=== PATIENT | female | born 1980 | race Two or more races ===

== ENCOUNTER 2018-04-28 03:45 | Inpatient (IN) ==
[2018-04-28] MEDS ORDERED: ceFAZolin 2 GM Premix Inj 2 GM/50 ML PIGGYBACK IV.SIG PRN (04:43)
[2018-04-28] MEDS ORDERED: Citric Acid/Sodium Citrate Liq 30 ML UDC PO SCH (04:45)
[2018-04-28] MEDS ORDERED: Zolpidem Tartrate 5 MG Tablet PO PRN (04:48)
[2018-04-28] MEDS ORDERED: Simethicone 80 MG Chew Tablet PO PRN (04:48)
[2018-04-28] MEDS ORDERED: Acetaminophen 325 MG Tablet PO PRN (04:48)
[2018-04-28] MEDS ORDERED: Oxytocin 30 Units/500ml Premix 30 UNITS/500 ML BAG IV.SIG ONE (04:48)
--- NOTE | 2018-04-28 04:54 | P.HPOB ---
History of Present Illness Primary Care Physician: NOT REQUIRED [facility] at [facility] Chief Complaint: Contractions since 1 AM and possible leaking of fluid History of Present Illness: 38-year-old 011 at 39 weeks with a final EDC of 04/30/2018 presents complaining of contractions since 1 AM and possible leakage of fluid. care complicated by controlled gestational diabetes, late entry to , GBS positive, and advanced maternal age. she has a history of a previous desires repeat with bilateral tubal ligation. Past OB history secondary to failure to progress Past [employer] history denies STDs Past medical history mild stroke Past surgical history Allergies aspirin but she is able to tolerate ibuprofen and Toradol Social history denies x3 previous smoker Weeks Gestation:: 39 Para: 1 : 3 - Inpatient Certification I certify that the inpatient services were ordered in accordance with Medicare regulations governing the order. This includes certification that hospital inpatient services are reasonable and necessary and in the case of services not specified as inpatient-only under 42 CFR 419.22(n), that they are appropriately provided as inpatient services in accordance to with the 2-midnight benchmark under 43 CFR 412.3(e) Estimated Total Length of Stay (Days): 3 Plans for Post Hospital Care: Home Review of Systems All other systems reviewed negative except as stated in HPI [facility] - Surgical History Surgical History: Surgical History (Last Updated 04/26/18 @ 04:53 by Fer Guo MD) Previous section - Tobacco History Smoking Status: Never smoker - Alcohol History How Often Do You Have a Drink Containing Alcohol: Never - Substance Use History Substance History: No History of Abuse - Travel History History of Recent Travel: No Medications and Allergies Active Medications: Active Medications Acetaminophen (Tylenol) 650 mg PO Q6H PRN PRN Reason: PAIN SCALE 1 TO 2 Citric Acid/Sodium Citrate (Sodium Citrate/Citric Acid Liq) 30 ml PO FREIGHT INSPECTOR LINDA Stop: 05/02/18 04:44 Diphtheria/Pertussis/Tetanus Vacc (Boostrix Vaccine Inj) 0.5 ml IM .ONCE ONE Stop: 04/29/18 16:01 Cefazolin Sodium/Dextrose (Ancef 2 Gm Premix Inj) 2 gm in 50 mls @ 100 mls/hr IV.SIG FREIGHT INSPECTOR PRN PRN Reason: ON-CALL Stop: 05/02/18 04:42 Lactated Ringer's (Lr 1000 Ml Inj) 1,000 mls @ 2,000 mls/hr IV.SIG .Q30M ONE Stop: 04/28/18 05:12 Lactated Ringer's (Lr 1000 Ml Inj) 1,000 mls @ 150 mls/hr IV.CONT .Q6H40M LINDA Acetaminophen (Ofirmev Inj) 1,000 mg in 100 mls @ 400 mls/hr IV.SIG ONCE ONE Stop: 04/28/18 05:02 Lactated Ringer's (Lr 1000 Ml Inj) 1,000 mls @ 100 mls/hr IV.CONT .Q10H LINDA Stop: 04/29/18 05:47 Oxytocin (Pitocin 30 Units/Ns 500 Ml Premix) 30 units in 500 mls @ 100 mls/hr IV.SIG ONCE ONE Stop: 04/28/18 09:47 Oxytocin (Pitocin 30 Units/Ns 500 Ml Premix) 30 units in 500 mls @ 100 mls/hr IV.SIG UNSCH PRN PRN Reason: Heavy bleeding Ibuprofen (Motrin) 800 mg PO Q8H PRN PRN Reason: cramping Ketorolac Tromethamine (Toradol Inj) 60 mg IM ONCE PRN PRN Reason: SEE LABEL COMMENTS Stop: 04/29/18 04:47 Measles/Mumps/Rubella Vaccine Live (M-M-R Ii Vaccine Inj) 0.5 ml SQ .ONCE ONE Stop: 04/29/18 16:01 Ondansetron HCl (Zofran Inj) 4 mg IV.PUSH Q6H PRN PRN Reason: NAUSEA OR VOMITING Oxycodone/Acetaminophen (Percocet 5/325 Mg) 1 tab PO Q4H PRN PRN Reason: PAIN SCALE 3 TO 5 Oxycodone/Acetaminophen (Percocet 5/325 Mg) 2 tab PO Q4H PRN PRN Reason: PAIN SCALE 6 TO 10 Senna/Docusate Sodium (Cara-Colace) 2 tab PO Q12H PRN PRN Reason: CONSTIPATION Simethicone (Mylicon Chew) 80 mg PO QID PRN PRN Reason: FLATULENCE Sodium Chloride (Ns Flush) 2 ml IV.FLUSH BID LINDA Sodium Chloride (Ns Flush) 2 ml IV.FLUSH PRN PRN PRN Reason: FLUSH AFTER USING IV ACCESS Zolpidem Tartrate (Ambien) 5 mg PO HS PRN PRN Reason: INSOMNIA Allergies Allergy/AdvReac Type Severity Reaction Status Date / Time aspirin Allergy BLOOD Verified 04/28/18 04:21 THICKENS Home Medications Medication Instructions Recorded Confirmed Type Vitamin 1 tab PO DAILY 04/28/18 04/28/18 History Exam Vital signs: Vital Signs 04/28/18 04:10 04/28/18 04:11 Temperature 98.0 F Pulse Rate 86 Respiratory Rate 18 Blood Pressure 130/85 Intake & Output 04/27/18 04/27/18 04/28/18 06:59 18:59 06:59 Weight 89.358 kg Narrative: GENERAL: Well-nourished, well-developed patient. SKIN: Warm and dry. HEAD: Normocephalic and atraumatic. EYES: No scleral icterus. No injection or drainage. ENT: No nasal drainage noted. Mucous membranes pink. Airway patent. NECK: Supple, trachea midline. No JVD. CARDIOVASCULAR: Regular rate and rhythm without murmurs, gallops, or rubs. RESPIRATORY: Breath sounds equal bilaterally. No accessory muscle use. BREASTS: Bilateral exam showed no masses , no retractions, no nipple discharge. ABDOMEN/GI: Abdomen soft, non-tender, bowel sounds present, no rebound, no guarding Gravid to 39 weeks size Fundal Height: 39 GENITOURINARY: External Genitalia: intact and normal in appearance BUS glands: Unremarkable Cervix: Soft Dilatation: 2-3 Effacement: 80% Station: -3 -2 Presentation: Vertex Membranes: Intact confirmed by PAMG Uterine Contractions: Regular every 1-3 minutes FHT's: Category: 1 Variability: Moderate EXTREMITIES: No cyanosis or edema. BACK: Nontender without obvious deformity. No CVA tenderness. NEUROLOGICAL: Awake and alert. Motor and sensory grossly within normal limits. Five out of 5 muscle strength in all muscle groups. Normal speech. Caprini VTE Risk Assessment Caprini VTE Risk Assessment: No/Low Risk (score <= 1) Caprini Risk Assessment Model: Point Value = 1 Point Value = 2 Point Value = 3 Point Value = 5 Age 41-60 Minor surgery BMI > 25 kg/m2 Swollen legs Varicose veins or History of unexplained or recurrent spontaneous Oral contraceptives or hormone replacement Sepsis (< 1 month) Serious lung disease, including pneumonia (< 1 month) Abnormal pulmonary function Acute myocardial infarction Congestive heart failure (< 1 month) History of inflammatory bowel disease Medical patient at bed rest Age 61-74 Arthroscopic surgery Major open surgery (> 45 min) Laparoscopic surgery (> 45 min) Malignancy Confined to bed (> 72 hours) Immobilizing plaster cast Central venous access Age >= 75 History of VTE Family history of VTE Factor V Leiden Prothrombin [id number] Lupus anticoagulant Anticardiolipin antibodies Elevated serum homocysteine Heparin-induced thrombocytopenia Other congenital or acquired thrombophilia Stroke (< 1 month) Elective arthroplasty Hip, pelvis, or leg fracture Acute spinal cord injury (< 1 month) Prophylaxis Regimen: Total Risk Factor Score Risk Level Prophylaxis Regimen 0-1 Low Early ambulation 2 Moderate Order ONE of the following: *Sequential Compression Device (SCD) *Heparin 5000 units SQ BID 3-4 Higher Order ONE of the following medications: *Heparin 5000 units SQ TID *Enoxaparin/Lovenox 40 mg SQ daily (WT < 150 kg, CrCl > 30 mL/min) *Enoxaparin/Lovenox 30 mg SQ daily (WT < 150 kg, CrCl > 10-29 mL/min) *Enoxaparin/Lovenox 30 mg SQ BID (WT < 150 kg, CrCl > 30 mL/min) AND/OR *Sequential Compression Device (SCD) 5 or more Highest Order ONE of the following medications: *Heparin 5000 units SQ TID (Preferred with Epidurals) *Enoxaparin/Lovenox 40 mg SQ daily (WT < 150 kg, CrCl > 30 mL/min) *Enoxaparin/Lovenox 30 mg SQ daily (WT < 150 kg, CrCl > 10-29 mL/min) *Enoxaparin/Lovenox 30 mg SQ BID (WT < 150 kg, CrCl > 30 mL/min) AND *Sequential Compression Device (SCD) Assessment and Plan - Diagnosis (1) Previous section complicating Code(s): O34.219 - Maternal care for unspecified type scar from previous delivery Status: Acute (2) Uterine contractions during Code(s): O62.2 - Other uterine inertia Status: Acute (3) Encounter for tubal ligation Code(s): Z30.2 - Encounter for sterilization Status: Acute (4) 39 weeks gestation of Code(s): Z3A.39 - 39 weeks gestation of Status: Acute - Plan At this point patient is commencing active labor with a history of previous C- section does not desire [id number] to the OR Alternatives benefits complications including but not limited to injury to the bowel bladder nerves blood vessels ureters any structures in the abdomen or pelvis infection hemorrhage morbidity mortality related surgery under anesthesia related procedures risk of injury. With tubal sterilization 1- 2 per thousand regards of method used to risk of ectopic permanency of the procedure. Risk of infection hemorrhage reoperation risk anesthesia related risk patient expressed verbal understanding.
[2018-04-28 05:01] LABS: Baso % (Auto) 0.4 % (0.0-2.0); Eos # (Auto) 0.1 th/mm3 (0.0-0.4); Hematocrit 35.4 % (35.0-46.0); Hemoglobin 11.8 gm/dL (11.6-15.3); Lymph # (Auto) 1.9 th/mm3 (1.0-4.8); Lymph % (Auto) 19.2 % (9.0-44.0); Mean Corpuscular HGB Conc 33.4 % (32.0-36.0); Mean Platelet Volume 8.4 fL (7.0-11.0); Mono # (Auto) 0.8 th/mm3 (0.0-0.9); Mono % (Auto) 7.9 % (0.0-8.0); Neut # (Auto) 7.1 th/mm3 (1.8-7.7); Neut % (Auto) 71.5 % (16.0-70.0); Platelet Count 190 th/mm3 (150-450); Red Blood Count 4.54 mil/mm3 (4.00-5.30); Red Cell Distribution Width 15.3 % (11.6-17.2)
[2018-04-28 05:20] LABS: Alanine Aminotransferase 13 U/L (10-53); Albumin 2.3 g/dL (3.4-5.0); Anion Gap 7 meq/L (5-15); Aspartate Aminotransferase 13 U/L (15-37); Blood Urea Nitrogen 14 mg/dL (7-18); Calcium 8.3 mg/dL (8.5-10.1); Carbon Dioxide 23.3 meq/L (21.0-32.0); Chloride 110 meq/L (98-107); Glomerular Filtration Rate 79 mL/min (>89); Glucose,Random 82 mg/dL (74-106); Potassium 4.1 meq/L (3.5-5.1); Sodium 140 meq/L (136-145)
[2018-04-28 05:22] LABS: Alkaline Phosphatase 163 U/L (45-117); Total Protein 6.8 g/dL (6.4-8.2)
--- NOTE | 2018-04-28 06:55 | P.OP ---
- Preoperative Diagnosis (1) Previous section complicating (2) Uterine contractions during (3) 39 weeks gestation of (4) Encounter for tubal ligation - Postoperative Diagnosis (1) Previous section complicating (2) Uterine contractions during (3) 39 weeks gestation of (4) Encounter for tubal ligation (5) Theca-lutein cyst of ovary (6) Thick meconium stained amniotic fluid Date of procedure: 04/28/18 Procedure: Repeat low uterine transverse section and bilateral tubal ligation Anesthesia: spinal Surgeon: Maryann Gamble MD Estimated blood loss (mL): 700 Pathology: other (Bilateral theca lutein cysts) Operation and Findings: Patient presents to labor and delivery in labor scheduled for a delivery and tubal sterilization at 1030 we will proceed now. Complications of injury to the bowel bladder nerves blood vessels ureters fetus in any structures in the abdomen or pelvis. Reoperation risk. Risk of ectopic and permanency of the procedure with tubal sterilization. Unforeseen injury. Anesthesia related risks. Hemorrhage infection. Patient expressed verbal understanding. Subsequently she was taken to the OR where she was placed under spinal analgesia prepped and draped in normal sterile fashion. Timeout was performed and received preop antibiotics. A Pfannenstiel skin incision was made through a different incision approximately 1 cm above her previous incision fascia incised in the midline dissected laterally digitally. The superior aspect the fascia was grasped with Freedom clamps x2 dissected off from the underlying rectus muscle. Inferior aspect of the fascia was grasped with Oksana clamps x2 dissected off from the underlying rectus muscle.. Rectus muscle was blunt entrance into the peritoneum with care to avoid the bladder bladder blade was placed. Vesicouterine peritoneum was identified created in a transverse fashion. Once the bladder flap was created the [place] was repositioned. The lower uterine segment was extremely thin. Consistent with a labored lower uterine segment. A single stab incision with opening of the lower uterine segment which was dissected laterally digitally . Amniotomy copious meconium noted. The vertex was delivered the nares and mouth were bulb suctioned followed by delivery of the remainder of the body. Delayed cord clamping. Viable female Apgars 7 8 weight 8 pounds 13 ounces. Of note baby was taken to the NICU for further observation. Cord blood was collected. Placenta was manually removed noted to be markedly meconium stained note thick particulate matter present. Uterus was externalized cleared of all clot and debris. Uterine incision was reapproximated with 1-0 chromic then subsequently 1-0 Vicryl. The lower uterine segment was quite thin had to rebuild the lower uterine segment using interrupted sutures as well as running sutures. Once subsequently closed and adequate hemostasis present proceeded to ligate patient's tubes. The left tube was subsequently followed out to the fimbriated end grasped approximately 2 cm from the corneal region and then subsequently ligated x2 with plain gut the knuckle of tube was excised however the integrity was felt to be suboptimal at this time proceeded to utilize the peritoneum buried the stump of the ostia and then subsequently closed in a running fashion locked with an SH needle 3 oh. Good hemostasis noted. The contralateral tube or right tube able to successfully grasped with a [place] clamp good knuckling good blanching of tube noted after application of plain gut x2 and the tube was subsequently excised and handed off to pathology. The paracolic gutters were cleared of all clot and debris. Bilateral theca lutein cyst noted patient made aware. Uterus was repositioned into the pelvic abdominal cavity. To ensure hemostasis the uterine incision was evaluated hemostasis was noted to be adequate however placed Interceed along the uterine incision to the patient's right. Observe times several more minutes no further oozing or bleeding noted.. Patient's rectus muscle on the left hand side was noted to be sheared and oozing subsequently Bovie pencil applied with figure of 8 suture x3 with good hemostasis noted the same identical process was noted on the contralateral side and controlled with [id number] suture x2.. Observe times several more minutes no further bleeding or oozing noted.. Once again reevaluated all the incisions and areas which were ligated good hemostasis note noted at all sites. Proceeded to identify the fascia which was closed with 1 PDS in a running fashion.. The subcutaneous fat was reapproximated with 1 chromic in an interrupted fashion. The skin was closed with insert on a Luis needle. Mother stable
[2018-04-28 09:18] LABS: Bacteria,Urine Rare /hpf; Bilirubin,Urine Negative (Negative); Clarity,Urine Hazy (Clear); Color,Urine Yellow (Yellw/Straw); Glucose,Urine (UA) Negative (Negative); Leukocyte Esterase,Urine Trace (Negative); Mucus,Urine Few /lpf (Occasional); Nitrite,Urine Negative (Negative); Specific Gravity,Urine 1.018 (1.002-1.035); Squamous Epithelial Cell,Urine 3 /hpf (0-5)
[2018-04-28] MEDS ORDERED: Oxytocin 30 Units/500ml Premix 30 UNITS/500 ML BAG IV.SIG PRN (09:48)
[2018-04-28] MEDS ORDERED: Naloxone Inj 0.4 MG/ML Vial IV.PUSH PRN (09:50)
[2018-04-28] MEDS: Senna/Docusate Sodium 8.6/50 MG Tablet PO PRN (21:59)
--- NOTE | 2018-04-29 09:00 | P.PNOB ---
Subjective Post op day: 1 Interval history: Patient is a 38-year-old G 3 P 2 delivered at 39 weeks. Patient is postop day 1 after repeat . Patient's pain is well-controlled. Patient reports eating and drinking without any nausea or vomiting. Patient reports minimal bleeding. Patient has passed gas but no bowel movements. Patient is walking without lower extremity pain or shortness of breath. She does report lower extremity edema but it is improved since delivery. Objective Vital Signs/I&O: Vital Signs 04/28/18 12:00 04/28/18 16:00 04/28/18 20:00 Temperature 97.7 F 98.9 F 97.8 F Pulse Rate 59 L 74 86 Respiratory Rate 18 18 18 Blood Pressure 123/89 116/75 128/87 04/29/18 00:00 04/29/18 04:00 Temperature 98.2 F 98.1 F Pulse Rate 85 86 Respiratory Rate 18 18 Blood Pressure 114/66 116/70 Result Diagrams: 04/28/18 04:49 04/28/18 04:49 Objective Remarks: GENERAL: Well-nourished, well-developed patient. CARDIOVASCULAR: Regular rate and rhythm without murmurs, gallops, or rubs. RESPIRATORY: Breath sounds equal bilaterally. No accessory muscle use. ABDOMEN/GI: Abdomen soft, non-tender, bowel sounds present. Incision: Bandage is clean, dry and intact. Fundus: Firm, non-tender at umbilicus. GENITOURINARY: Light to moderate bleeding. EXTREMITIES: Bilateral 1+ pitting edema to mid calf, non-tender, without signs of DVT. Medications and IVs: Active Medications Acetaminophen (Tylenol) 650 mg PO Q6H PRN PRN Reason: PAIN SCALE 1 TO 2 Citric Acid/Sodium Citrate (Sodium Citrate/Citric Acid Liq) 30 ml PO SPECIAL MAKEUP FX ARTIST INSTRUCTOR LINDA Stop: 05/02/18 04:44 Diphtheria/Pertussis/Tetanus Vacc (Boostrix Vaccine Inj) 0.5 ml IM .ONCE ONE Stop: 04/29/18 16:01 Cefazolin Sodium/Dextrose (Ancef 2 Gm Premix Inj) 2 gm in 50 mls @ 100 mls/hr IV.SIG SPECIAL MAKEUP FX ARTIST INSTRUCTOR PRN PRN Reason: ON-CALL Stop: 05/02/18 04:42 Lactated Ringer's (Lr 1000 Ml Inj) 1,000 mls @ 150 mls/hr IV.CONT .Q6H40M [facility] Last Admin: 04/29/18 04:09 Dose: Not Given Oxytocin (Pitocin 30 Units/Ns 500 Ml Premix) 30 units in 500 mls @ 100 mls/hr IV.SIG UNSCH PRN PRN Reason: Heavy bleeding Ibuprofen (Motrin) 800 mg PO Q8H PRN PRN Reason: cramping Last Admin: 04/28/18 22:00 Dose: 800 mg Measles/Mumps/Rubella Vaccine Live (M-M-R Ii Vaccine Inj) 0.5 ml SQ .ONCE ONE Stop: 04/29/18 16:01 Ondansetron HCl (Zofran Inj) 4 mg IV.PUSH Q6H PRN PRN Reason: NAUSEA OR VOMITING Oxycodone/Acetaminophen (Percocet 5/325 Mg) 1 tab PO Q4H PRN PRN Reason: PAIN SCALE 3 TO 5 Oxycodone/Acetaminophen (Percocet 5/325 Mg) 2 tab PO Q4H PRN PRN Reason: PAIN SCALE 6 TO 10 Last Admin: 04/29/18 04:06 Dose: 2 tab Senna/Docusate Sodium (Cara-Colace) 2 tab PO Q12H PRN PRN Reason: CONSTIPATION Last Admin: 04/28/18 21:59 Dose: 2 tab Simethicone (Mylicon Chew) 80 mg PO QID PRN PRN Reason: FLATULENCE Sodium Chloride (Ns Flush) 2 ml IV.FLUSH BID [facility] Last Admin: 04/28/18 22:01 Dose: Not Given Sodium Chloride (Ns Flush) 2 ml IV.FLUSH PRN PRN PRN Reason: FLUSH AFTER USING IV ACCESS Zolpidem Tartrate (Ambien) 5 mg PO HS PRN PRN Reason: INSOMNIA Assessment and Plan - Plan Patient is a 38-year-old G 3 P 2 delivered at 39 weeks. Patient is day 1 after repeat . Patient was counseled to do 6 weeks of pelvic rest. Patient was counseled to follow up in 6 weeks. --AF VSS --Continue routine care --Motrin and Percocet when necessary for pain --Encourage OOB --Pelvic rest for 6 weeks will need follow-up appointment at that time. --Contraception: Tubal ligation --Anticipate discharge tomorrow or Rajiv
[2018-04-29] MEDS ORDERED: Influenza (Quadrivalent) Vaccine 0.5 ML Syringe IM ONE (16:00)
[2018-04-29] MEDS ORDERED: Diphtheria/Tetanus/Pertussis Vaccine Inj 0.5 ML Syringe IM ONE (16:00)
[2018-04-29] MEDS ORDERED: Measles/Mumps/Rubella Vaccine Inj 0.5 ML Vial SQ ONE (16:00)
--- NOTE | 2018-04-30 08:43 | P.PNOB ---
Subjective Post op day: 2 Interval history: Patient is a 38-year-old G 3 P 2 delivered at 39 weeks. Patient is postop day 2 after repeat . Patient's pain is well-controlled. Patient reports eating and drinking without any nausea or vomiting. Patient reports minimal bleeding. Patient has passed gas but no bowel movements. Patient is walking without lower extremity pain or shortness of breath. She does report lower extremity edema. Objective Vital Signs/I&O: Vital Signs 04/29/18 09:30 04/29/18 20:00 Temperature 97.7 F 98.6 F Pulse Rate 88 108 H Respiratory Rate 20 20 Blood Pressure 121/75 148/84 H Result Diagrams: 04/28/18 04:49 04/28/18 04:49 Objective Remarks: GENERAL: Well-nourished, well-developed patient. CARDIOVASCULAR: Regular rate and rhythm without murmurs, gallops, or rubs. RESPIRATORY: Breath sounds equal bilaterally. No accessory muscle use. ABDOMEN/GI: Abdomen soft, non-tender, bowel sounds present. Incision: Clean, dry and intact. Fundus: Firm, non-tender at umbilicus. GENITOURINARY: Light to moderate bleeding. EXTREMITIES: +1 pitting edema to mid calf same as yesterday, non-tender, without signs of DVT. Medications and IVs: Active Medications Acetaminophen (Tylenol) 650 mg PO Q6H PRN PRN Reason: PAIN SCALE 1 TO 2 Citric Acid/Sodium Citrate (Sodium Citrate/Citric Acid Liq) 30 ml PO DIVING JUDGE [facility] Stop: 05/02/18 04:44 Cefazolin Sodium/Dextrose (Ancef 2 Gm Premix Inj) 2 gm in 50 mls @ 100 mls/hr IV.SIG DIVING JUDGE PRN PRN Reason: ON-CALL Stop: 05/02/18 04:42 Lactated Ringer's (Lr 1000 Ml Inj) 1,000 mls @ 150 mls/hr IV.CONT .Q6H40M [facility] Last Admin: 04/29/18 21:25 Dose: Not Given Oxytocin (Pitocin 30 Units/Ns 500 Ml Premix) 30 units in 500 mls @ 100 mls/hr IV.SIG UNSCH PRN PRN Reason: Heavy bleeding Ibuprofen (Motrin) 800 mg PO Q8H PRN PRN Reason: cramping Last Admin: 04/30/18 02:50 Dose: 800 mg Ondansetron HCl (Zofran Inj) 4 mg IV.PUSH Q6H PRN PRN Reason: NAUSEA OR VOMITING Oxycodone/Acetaminophen (Percocet 5/325 Mg) 1 tab PO Q4H PRN PRN Reason: PAIN SCALE 3 TO 5 Last Admin: 04/30/18 02:51 Dose: 1 tab Oxycodone/Acetaminophen (Percocet 5/325 Mg) 2 tab PO Q4H PRN PRN Reason: PAIN SCALE 6 TO 10 Last Admin: 04/29/18 04:06 Dose: 2 tab Senna/Docusate Sodium (Cara-Colace) 2 tab PO Q12H PRN PRN Reason: CONSTIPATION Last Admin: 04/28/18 21:59 Dose: 2 tab Simethicone (Mylicon Chew) 80 mg PO QID PRN PRN Reason: FLATULENCE Last Admin: 04/29/18 12:21 Dose: 80 mg Sodium Chloride (Ns Flush) 2 ml IV.FLUSH BID LINDA Last Admin: 04/29/18 21:24 Dose: Not Given Sodium Chloride (Ns Flush) 2 ml IV.FLUSH PRN PRN PRN Reason: FLUSH AFTER USING IV ACCESS Zolpidem Tartrate (Ambien) 5 mg PO HS PRN PRN Reason: INSOMNIA Assessment and Plan - Diagnosis (1) delivery delivered Code(s): O82 - Encounter for delivery without indication Status: Acute - Plan Patient is a 38-year-old G 3 P 2 delivered at 39 weeks. Patient is day 2 after repeat . Patient was counseled to do 6 weeks of pelvic rest. Patient was counseled to follow up in 6 weeks. --AF VSS- BP elevated at 148/84 last night but this morning it is 120/69. --CBC to monitor H&H after and platelets --CMP to monitor LFTs with elevated blood pressures although the suspicion for preeclampsia is low. --Continue routine care --Motrin and Percocet when necessary for pain --Encourage OOB --Pelvic rest for 6 weeks will need follow-up appointment at that time. --Contraception: Tubal ligation --Anticipate discharge today if H&H is stable and platelets, LFTs WNL.
[2018-04-30 09:17] VITALS: BP 120/69; PULSE 87; RESP 16; TEMP 98.1
[2018-04-30 10:01] LABS: Baso % (Auto) 0.3 % (0.0-2.0); Eos # (Auto) 0.2 th/mm3 (0.0-0.4); Eos % (Auto) 2.1 % (0.0-4.0); Hematocrit 27.7 % (35.0-46.0); Hemoglobin 9.2 gm/dL (11.6-15.3); Lymph # (Auto) 1.4 th/mm3 (1.0-4.8); Lymph % (Auto) 15.1 % (9.0-44.0); Mean Corpuscular HGB Conc 33.4 % (32.0-36.0); Mean Corpuscular Hemoglobin 26.3 pg (27.0-34.0); Mean Corpuscular Volume 78.8 fL (80.0-100.0); Mean Platelet Volume 7.4 fL (7.0-11.0); Mono # (Auto) 0.6 th/mm3 (0.0-0.9); Neut # (Auto) 7.1 th/mm3 (1.8-7.7); Neut % (Auto) 76.5 % (16.0-70.0); Platelet Count 204 th/mm3 (150-450); Red Blood Count 3.51 mil/mm3 (4.00-5.30); Red Cell Distribution Width 15.6 % (11.6-17.2); White Blood Count 9.3 th/mm3 (4.0-11.0)
[2018-04-30 10:29] LABS: Anion Gap 9 meq/L (5-15); Aspartate Aminotransferase 25 U/L (15-37); Blood Urea Nitrogen 11 mg/dL (7-18); Calcium 8.1 mg/dL (8.5-10.1); Carbon Dioxide 25.9 meq/L (21.0-32.0); Chloride 107 meq/L (98-107); Glomerular Filtration Rate 78 mL/min (>89); Glucose,Random 136 mg/dL (74-106); Sodium 142 meq/L (136-145)
[2018-04-30 10:30] LABS: Alanine Aminotransferase 15 U/L (10-53)
[2018-04-30 10:32] LABS: Alkaline Phosphatase 111 U/L (45-117); Total Protein 5.8 g/dL (6.4-8.2)
[2018-04-30] MEDS: Senna/Docusate Sodium 8.6/50 MG Tablet PO PRN (10:36)
== END 2018-04-30 15:50 | disposition home or self-care (01) ==
LOC: HOBED 03:45 → H1EA 04:00 → H2E 04:39 → H1EA 08:43
PROVIDERS: ADMIT Obstetrics & Gynecology; ATTEND Obstetrics & Gynecology